=== PATIENT | female | born 1955 | race Caucasian/White ===

== ENCOUNTER → 2023-10-09 14:25 | Outpatient (REF) | payer BC, SELFPAY | LOC: HWRCS 14:25 | PROVIDERS: ATTENDING PHYSICIAN Internal Medicine Cardiovascular Disease; FAMILY PHYSICIAN Internal Medicine | DX: R06.09 Other forms of dyspnea (principal); R01.1 Cardiac murmur, unspecified | CPT/HCPCS: 93306 ==

== ENCOUNTER → 2023-10-16 14:12 | Outpatient (REF) | payer BC, SELFPAY | LOC: RCS 14:12 | PROVIDERS: ATTENDING PHYSICIAN Internal Medicine Cardiovascular Disease; FAMILY PHYSICIAN Internal Medicine | DX: R06.09 Other forms of dyspnea (principal); R01.1 Cardiac murmur, unspecified | CPT/HCPCS: 93017; 93350 ==

== ENCOUNTER → 2024-03-12 14:56 | Outpatient (REF) | payer BC, SELFPAY | LOC: RAD 14:56 | PROVIDERS: ATTENDING PHYSICIAN Internal Medicine Cardiovascular Disease; FAMILY PHYSICIAN Internal Medicine | DX: R60.0 Localized edema (principal); R06.09 Other forms of dyspnea; R94.39 Abnormal result of other cardiovascular function study | CPT/HCPCS: 93970 ==

== ENCOUNTER → 2024-04-22 06:45 | Outpatient (REF) | payer BC, SELFPAY | LOC: HWWDC 06:45 | PROVIDERS: ATTENDING PHYSICIAN Internal Medicine | DX: Z12.31 Encounter for screening mammogram for malignant neoplasm of breast (principal) | CPT/HCPCS: 77063; 77067 ==

== ENCOUNTER → 2024-07-08 09:30 | Outpatient (REF) | payer BC, SELFPAY | LOC: RAD 09:30 | PROVIDERS: ATTENDING PHYSICIAN Internal Medicine Cardiovascular Disease; FAMILY PHYSICIAN Internal Medicine | DX: R06.09 Other forms of dyspnea (principal); R94.39 Abnormal result of other cardiovascular function study; R60.0 Localized edema | CPT/HCPCS: 75574; Q9967 ==

== ENCOUNTER → 2024-10-09 12:10 | Outpatient (REF) | payer BC, SELFPAY | LOC: HWRAD 12:10 | PROVIDERS: ATTENDING PHYSICIAN Internal Medicine | DX: M79.652 Pain in left thigh (principal) | CPT/HCPCS: 72202; 73502; 73552 ==

== ENCOUNTER → 2025-04-05 15:24 | Outpatient (REF) | payer BC, SELFPAY | LOC: RAD 15:24 | PROVIDERS: ATTENDING PHYSICIAN Internal Medicine | DX: R93.89 Abnormal findings on diagnostic imaging of other specified body structures (principal) | CPT/HCPCS: 71260; Q9967 ==

== ENCOUNTER → 2025-05-17 08:15 | Outpatient (REF) | payer BC, SELFPAY | LOC: WDC 08:15 | PROVIDERS: ATTENDING PHYSICIAN Internal Medicine | DX: M54.50 Low back pain, unspecified (principal); R22.31 Localized swelling, mass and lump, right upper limb | CPT/HCPCS: 72110; 76642; 77062; 77066 ==